=== PATIENT | male | born 1970 | race African-American/Black ===

== ENCOUNTER 2017-07-12 18:41 | Emergency (ER) | payer OTHER ==
[2017-07-12 18:44] VITALS: BP 145/79; PULSE 100; TEMP 98.2; BMI 28.0
--- NOTE | 2017-07-12 21:36 | PDOC ---
History of Present Illness - General Chief Complaint: Pain Stated Complaint: FINGER INJURY Time Seen by Provider: 07/12/17 20:28 History Source: Patient Exam Limitations: No Limitations - History of Present Illness Initial Comments: 07/12/17 21:33 CHIEF COMPLAINT: Swelling, pain and inflammation to cuticle base of right third finger. HISTORY OF PRESENT ILLNESS: Patient is a 47-year-old male insulin-dependent diabetic presents emergency department for evaluation of 4 days of inflammation to cuticle base of right third finger. Patient states that he noted a white fluid collection at base of cuticle 4 days ago but thought it would resolve on its own now with increased pain and swelling. Good range of motion to finger. Denies any injury. Denies biting his nails. Severity: Yes: moderate Location: reports: hands Respiratory Risk Factors: reports: no cause identified Past History - Past Medical History Allergies/Adverse Reactions: Allergies Allergy/AdvReac Type Severity Reaction Status Date / Time No Known Allergies Allergy Verified 07/12/17 18:44 Home Medications: Ambulatory Orders Clindamycin [Cleocin -] 300 mg PO TID #30 capsule 07/12/17 Insulin Glargine,Hum.rec.anlog [Lantus (10mL VIAL) -] 0 units SQ HS 07/12/17 Diabetes: Yes - Suicide/Smoking/Psychosocial Hx Smoking History: Current every day smoker Number of Cigarettes Smoked Daily: 5 Information on smoking cessation initiated: Yes 'Breaking Loose' booklet given: 07/12/17 Hx Alcohol Use: No Drug/Substance Use Hx: No Substance Use Type: None Review of Systems - Review of Systems Constitutional: No: Symptoms Reported HEENTM: No: Symptoms Reported Respiratory: No: Symptoms reported Cardiac (ROS): No: Symptoms Reported ABD/GI: No: Symptoms Reported : No: Symptoms Reported Musculoskeletal: No: Joint Pain, Joint Swelling Integumentary: Yes: Erythema, Other (White pustulant collection to cuticle base of right third finger right lateral border) Neurological: No: Symptoms reported Hematologic/Lymphatic: No: Symptoms Reported All Other Systems: Reviewed and Negative *Physical Exam - Vital Signs Last Vital Signs Temp Pulse Resp BP Pulse Ox 98.2 F 100 H 18 145/79 98 07/12/17 18:43 07/12/17 18:43 07/12/17 18:43 07/12/17 18:43 07/12/17 18:43 - Physical Exam General Appearance: Yes: Appropriately Dressed. No: Apparent Distress Respiratory/Chest: positive: Lungs Clear, Normal Breath Sounds Cardiovascular: positive: Regular Rhythm, Regular Rate Musculoskeletal: positive: Normal Inspection Extremity: positive: Swelling, Erythema, Inflammation, Other (White pustulant collection to cuticle base of right third finger right lateral border) Integumentary: positive: Erythema, Swelling. negative: Ecchymosis, Bruising Neurologic: positive: Alert, Normal Mood/Affect, Normal Response, Motor Strength 5/5 Procedures - Incision and Drainage I&D Site: Right: Paronychia (3rd finger.) Betadine cleansed: Yes Anesthesia: 1% Lidocaine Volume(ml): 3 Blade Size: 11 Attempts: 1 (area cleansed under sterile technique with Betadine, digital block using 1% lidocaine injecting 6 mL to base of right third finger with good results. Using #11 blade, cuticle from the nail base large amounts of pustulant drainage removed and culture was sent. Pressure dressing applied. Patient started on antibiotics tolerated procedure well unable to placed packing because of pressure however finger is draining spontaneously.) Plain Packing: No Complications: none Dressing: Yes Medical Decision Making - Medical Decision Making 07/12/17 22:56 A/P: Patient here for paronychia drainage, warm soaks to be performed 4 times a day with manual manipulation to remove pustulant drainage during soaking. Will start patient on clindamycin, Motrin for pain, follow-up as needed if any increased redness swelling or signs of infection will need to return to ER *DC/Admit/Observation/Transfer Diagnosis at time of Disposition: Paronychia - Discharge Dispostion Disposition: HOME Condition at time of disposition: Good Admit: No - Prescriptions Prescriptions: Clindamycin [Cleocin -] 300 mg PO TID #30 capsule - Referrals Referrals: Vasile Bishop MD [Staff Physician] - - Patient Instructions Printed Discharge Instructions: DI for Wound Infection Additional Instructions: Keep dressing on overnight. Warm compresses 15-20 minutes at a time 3-4 times a day. 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
== END 2017-07-12 21:52 | disposition home or self-care (01) ==
LOC: JERFT 18:41
PROC: 0J9J0ZZ Drainage of Right Hand Subcutaneous Tissue and Fascia, Open Approach (ICD-10-PCS; principal; 2017-07-12)
DX: L03.011 Cellulitis of right finger (principal)
CPT/HCPCS: 10060; 87070; 87077; 87186; 87205; 99281-25